=== PATIENT | female | born 1945 | race Caucasian/White ===

== ENCOUNTER 2018-11-11 13:09 | Observation (INO) | payer MEDICARE, OTHER | END 2018-11-12 10:30 | disposition home or self-care (01) | LOC: ER 13:09 → 4TH 17:40 ==

== ENCOUNTER 2022-11-30 12:03 | Emergency (ER) | payer MEDICARE, OTHER ==
[~2022-11-30] VITALS: Ht 170 cm; Wt 63.0 kg
[~2022-11-30 12:03] MED LIST: ATORVASTATIN 20 MG; FLUTICASONE 50 MCG; LINA290C PO; METFORMIN 500 MG; METRONIDAZOLE 500 MG; PANTOPRAZOLE 20 MG
[2022-11-30] MEDS ORDERED: METOCLOPRAMIDE INJ 10 MG/2 ML (REGLAN) IVP ONE (12:30)
[2022-11-30] MEDS ORDERED: HOLD METFORMIN - RECEIVED CONTRAST 20 ML VIAL IV SCH (12:30)
[2022-11-30] MEDS ORDERED: IOHEXOL 350 MG/ML 100 ML (OMNIPAQUE 350) VIAL IV ONE (12:30)
[2022-11-30] MEDS ORDERED: NS 100 ML (IVPB) BAG IV ONE (12:30)
[2022-11-30 12:32] LABS: BASOPHILS % (AUTO) 1 % (0-10); EOSINOPHILS # (AUTO) 0.1 10^3/uL (0.0-0.3); EOSINOPHILS % (AUTO) 2 % (0-10); HEMATOCRIT 41 % (35-52); HEMOGLOBIN 14.1 g/dL (11.5-16.0); LYMPHOCYTES # (AUTO) 1.5 10^3/uL (1.0-4.0); LYMPHOCYTES % (AUTO) 24 % (12-44); MEAN CORPUSCULAR HEMOGLOBIN 31 pg (25-34); MEAN CORPUSCULAR HGB CONC 34 g/dL (32-36); MEAN CORPUSCULAR VOLUME 92 fL (80-99); MEAN PLATELET VOLUME 9.8 fL (9.0-12.2); MONOCYTES # (AUTO) 0.6 10^3/uL (0.0-1.0); MONOCYTES % (AUTO) 10 % (0-12); NEUTROPHILS # (AUTO) 3.9 10^3/uL (1.8-7.8); NEUTROPHILS % (AUTO) 63 % (42-75); PLATELET COUNT 205 10^3/uL (130-400); WHITE BLOOD COUNT 6.1 10^3/uL (4.3-11.0)
--- NOTE | 2022-11-30 12:32 | ED Abdominal Pain ---
General Chief Complaint: Abdominal/GI Problems Stated Complaint: ABD PAIN | WEAKNESS Nursing Triage Note: Pt here with upper abdominal pain x wks; reports the incidence are intermittent with sudden burning sensation from her shoulders down. Source of Information: Patient Exam Limitations: No Limitations History of Present Illness Date Seen by Provider: Nov 30, 2022 Time Seen by Provider: 12:28 Initial Comments Patient is a 77-year-old female who is type II diabetic who presents to ED with mid upper abdominal pain. Pain started 2 to 3 weeks ago. Pain at this is described as more "discomfort". Pain is intermittent. Patient states that she becomes nauseous with this discomfort. Similar type pain in the past. She also reports episodes of burning sensation throughout her abdomen, chest, upper and lower extremities. This lasts for a few seconds. She had episode yesterday and today. She does have some pain with eating. Decreased appetite. Patient states she does not follow a GI specialist Dr. Sellers in [place]. She was seen Sunday for this pain and had no procedure performed or unclear etiology of her pain. She does have a history of gastroparesis and has been on Reglan in the past. Not currently on medication. She has been taken Zofran for the nausea. History of cholecystectomy and appendectomy. Normal urinalysis. No specific chest pain, cough or shortness of breath. No known cardiac history history of stroke. She does have some discomfort and fuzzy sensation to the back part of her head over the past 2 to 3 weeks. Denies of any unilateral muscle weakness, sensory changes, visual changes, facial droop. No history of stroke or coronary artery disease. Denies fever, chills, cough, dysuria, frequent urination, vomiting, diarrhea, dark tarry stools. History of esophageal procedure 2 years ago with removal of a diverticulum Allergies and Home Medications Allergies Coded Allergies: Quinolones (Verified Allergy, Unknown, 11/11/18) Sulfa (Sulfonamide Antibiotics) (Verified Allergy, Unknown, 11/11/18) ciprofloxacin (Verified Allergy, Unknown, 11/11/18) fentanyl (Verified Allergy, Unknown, 11/11/18) levofloxacin (Verified Allergy, Unknown, 11/11/18) meloxicam (Verified Allergy, Unknown, 11/11/18) niacin (Verified Allergy, Unknown, 11/11/18) Patient Home Medication List Home Medication List Reviewed: Yes Linaclotide (Linzess) 290 Mcg Capsule, 290 MCG PO DAILY Prescribed by: MARA KEY on 11/12/18 0914 Metoclopramide HCl (Reglan) 5 Mg Tablet, 5 MG PO TID Prescribed by: ARMANDO BURCH on 11/30/22 1432 Ondansetron (Ondansetron Odt) 4 Mg Tab.rapdis, 4 MG SL Q4H PRN for NAUSEA/VOMITING Prescribed by: ARMANDO BURCH on 11/30/22 1432 [Atorvastatin Tab 20mg] , (Reported) Entered as Reported by: ASHLEY CABRAL on 11/11/18 1340 [Fluticasone Spr 50mcg] , (Reported) Entered as Reported by: ASHLEY CABRAL on 11/11/18 1340 [Metformin Tab 500MG Er] , (Reported) Entered as Reported by: ASHLEY CABRAL on 11/11/18 1340 [Pantoprazole Tab 20mg] , (Reported) Entered as Reported by: ASHLEY CABRAL on 11/11/18 1340 Discontinued Medications Metoclopramide HCl (Reglan) 5 Mg Tablet, 5 MG PO TID Prescribed by: ARMANDO BURCH on 11/30/22 1414 Ondansetron (Ondansetron Odt) 4 Mg Tab.rapdis, 4 MG SL Q4H PRN for NAUSEA/VOMITING Prescribed by: ARMANDO BURCH on 11/30/22 1414 Review of Systems Review of Systems Constitutional: No chills, No diaphoresis, No fever, No malaise, No weakness EENTM: No Blurred Vision, No Double Vision Respiratory: Denies Cough, Denies Orthopnea Cardiovascular: Denies Chest Pain, Denies Edema, Denies Irregular Heart Rate Gastrointestinal: Abdominal Pain; Denies Diarrhea; Nausea; Denies Vomiting Genitourinary: Denies Burning, Denies Discharge, Denies Drainage, Denies Frequency, Denies Flank Pain Musculoskeletal: No back pain Skin: No change in color, No change in hair/nails Psychiatric/Neurological: Headache Endocrine: Denies Excessive Sweating All Other Systems Reviewed Negative Unless Noted: Yes Past Lxuhtgp-Sfilzk-Ghrzke Hx Immunizations Up To Date Tetanus Booster (TDap): Unknown PED Vaccines UTD: Yes Seasonal Allergies Seasonal Allergies: Yes Past Medical History Surgeries: Yes (lumbar fusion spinal cord stimulator) Appendectomy, Gallbladder Respiratory: No Cardiac: No High Cholesterol Neurological: No Genitourinary: Yes Kidney Stones Gastrointestinal: Yes Chronic Constipation, Irritable Bowel Musculoskeletal: Yes Chronic Back Pain Endocrine: Yes (THYROID NODULES) Diabetes, Non-Insulin dep HEENT: No Cancer: No Psychosocial: No Integumentary: No Blood Disorders: No Family Medical History No Pertinent Family Hx Physical Exam Vital Signs Vital Signs - First Documented 11/30/22 12:19 Temp 36.2 Pulse 72 Resp 18 B/P (MAP) 139/80 (99) Pulse Ox 97 O2 Delivery Room Air Capillary Refill : Less Than 3 Seconds Height/Weight/BMI Height: 5'7.00" Weight: 145lbs. 6.7oz. 65.125275uv; 21.00 BMI Method:Stated General Appearance: WD/WN, no apparent distress HEENT: PERRL/EOMI, normal ENT inspection, TMs normal, pharynx normal Neck: non-tender, full range of motion, supple, normal inspection Respiratory: chest non-tender, lungs clear, normal breath sounds, no respiratory distress, no accessory muscle use Cardiovascular: regular rate, rhythm, no edema, no gallop, no JVD Gastrointestinal: normal bowel sounds, soft, no organomegaly, no pulsatile mass, tenderness (Lower quadrant tenderness, epigastric tender) Extremities: normal range of motion, non-tender, normal inspection, no pedal edema, no calf tenderness Back: normal inspection, no CVA tenderness 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, no motor/sensory deficits, alert, normal mood/affect, oriented x 3 Skin: normal color, warm/dry Progress/Results/Core Measures Results/Orders Lab Results Laboratory Tests Test 11/30/22 12:22 11/30/22 12:51 Range/Units White Blood Count 6.1 4.3-11.0 10^3/uL Red Blood Count 4.50 3.80-5.11 10^6/uL Hemoglobin 14.1 11.5-16.0 g/dL Hematocrit 41 35-52 % Mean Corpuscular Volume 92 80-99 fL Mean Corpuscular Hemoglobin 31 25-34 pg Mean Corpuscular Hemoglobin Concent 34 32-36 g/dL Red Cell Distribution Width 12.9 10.0-14.5 % Platelet Count 205 130-400 10^3/uL Mean Platelet Volume 9.8 9.0-12.2 fL Immature Granulocyte % (Auto) 0 % Neutrophils (%) (Auto) 63 42-75 % Lymphocytes (%) (Auto) 24 12-44 % Monocytes (%) (Auto) 10 0-12 % Eosinophils (%) (Auto) 2 0-10 % Basophils (%) (Auto) 1 0-10 % Neutrophils # (Auto) 3.9 1.8-7.8 10^3/uL Lymphocytes # (Auto) 1.5 1.0-4.0 10^3/uL Monocytes # (Auto) 0.6 0.0-1.0 10^3/uL Eosinophils # (Auto) 0.1 0.0-0.3 10^3/uL Basophils # (Auto) 0.0 0.0-0.1 10^3/uL Immature Granulocyte # (Auto) 0.0 0.0-0.1 10^3/uL Sodium Level 129 L 135-145 MMOL/L Potassium Level 4.2 3.6-5.0 MMOL/L Chloride Level 97 L 98-107 MMOL/L Carbon Dioxide Level 23 21-32 MMOL/L Anion Gap 9 5-14 MMOL/L Blood Urea Nitrogen 14 7-18 MG/DL Creatinine 1.04 0.60-1.30 MG/DL Estimat Glomerular Filtration Rate 55 BUN/Creatinine Ratio 13 Glucose Level 136 H 70-105 MG/DL Calcium Level 9.9 8.5-10.1 MG/DL Corrected Calcium 9.5 8.5-10.1 MG/DL Magnesium Level 2.0 1.6-2.4 MG/DL Total Bilirubin 0.6 0.1-1.0 MG/DL Aspartate Amino Transf (AST/SGOT) 26 5-34 U/L Alanine Aminotransferase (ALT/SGPT) 23 0-55 U/L Alkaline Phosphatase 64 40-136 U/L Troponin I < 0.028 <0.028 NG/ML Total Protein 6.7 6.4-8.2 GM/DL Albumin 4.5 3.2-4.5 GM/DL Lipase 40 8-78 U/L Urine Color YELLOW Urine Clarity CLEAR Urine pH 7.0 5-9 Urine Specific [place] 1.010 L 1.016-1.022 Urine Protein NEGATIVE NEGATIVE Urine Glucose (UA) NEGATIVE NEGATIVE Urine Ketones 1+ H NEGATIVE Urine Nitrite NEGATIVE NEGATIVE Urine Bilirubin NEGATIVE NEGATIVE Urine Urobilinogen 0.2 < = 1.0 MG/DL Urine Leukocyte Esterase NEGATIVE NEGATIVE Urine RBC (Auto) NEGATIVE NEGATIVE Urine RBC RARE /HPF Urine WBC RARE /HPF Urine Squamous Epithelial Cells 2-5 /HPF Urine Crystals NONE /LPF Urine Bacteria TRACE /HPF Urine Casts NONE /LPF Urine Mucus NEGATIVE /LPF Urine Culture Indicated NO My Orders Orders - PERRY KIRK PA Cbc With Automated Diff (11/30/22 12:26) Comprehensive Metabolic Panel (11/30/22 12:26) Troponin I Buster (11/30/22 12:26) Ekg Tracing (11/30/22 12:) Ua Culture If Indicated (11/30/22 12:) Chest 1 View, Ap/Pa Only (11/30/22 12:26) Ct Abdomen/Pelvis W (11/30/22 12:26) Magnesium (11/30/22 12:) Lipase (11/30/22 12:) Metoclopramide Injection (Reglan Injecti (11/30/22 12:30) Iohexol Injection (Omnipaque 350 Mg/Ml 1 (11/30/22 12:30) Received Contrast (Hold Metformin- Contr (11/30/22 12:30) Ns (Ivpb) (Sodium Chloride 0.9% Ivpb Bag (11/30/22 12:30) Ns Iv 1000 Ml (Sodium Chloride 0.9%) (11/30/22 13:00) Ns Iv 500 Ml (Sodium Chloride 0.9%) (11/30/22 13:52) Medications Given in ED Current Medications Medications Dose Ordered Sig/Cy Route Start Time Stop Time Status Last Admin Dose Admin Iohexol 100 ml ONCE ONCE IV 11/30/22 12:30 11/30/22 12:31 DC 11/30/22 13:11 75 ML Metoclopramide HCl 5 mg ONCE ONCE IVP 11/30/22 12:30 11/30/22 12:31 DC 11/30/22 12:48 5 MG Sodium Chloride 100 ml ONCE ONCE IV 11/30/22 12:30 11/30/22 12:31 DC 11/30/22 13:11 80 ML Vital Signs/I&O 11/30/22 11/30/22 12:19 14:48 Temp 36.2 Pulse 72 56 Resp 18 B/P (MAP) 139/80 (99) 138/68 Pulse Ox 97 99 O2 Delivery Room Air Blood Pressure Mean: 99 Comment Sinus rhythm with first-degree AV block, left axis deviation, possible right ventricular conduction delay, 60 bpm, QRS duration 87 MS, QTc 412 MS. Departure Communication (PCP) Patient is a 77-year-old female with a history of gastroparesis esophageal d iverticulum, gastritis, history of cholecystectomy and appendectomy presents to ED with abdominal pain. Abdominal pain over the past 2 to 3 weeks. Pain is intermittent described as more "discomfort" with nausea. No vomiting or diarrhea. Differential diagnosis of gastritis, peptic ulcer, gastroparesis, diverticulitis, ACS. No known history of coronary artery disease. Due to lo cation of pain upper abdomen: cardiac work-up with CBC, CMP, magnesium, lipase, urinalysis. She does take omeprazole daily. Patient has been on Reglan in the past for her gastroparesis. She is type II diabetic currently on insulin. CBC grossly unremarkable. Chemistry showed a sodium 129, chloride of 97, blood sugar of 139. Normal troponin. EKG normal sinus rhythm without evidence of ST elevation or depression. Chest x-ray was unremarkable. Due to the abdominal pain and discomfort for the past [address] scan of the abdomen and pelvis was ordered. CT scan of the abdomen pelvis was negative for acute abnormality. She did receive 5 mg of Reglan with improvement of her pain. She was tolerating p.o. fluids. She received 1500 ml of IV saline. Urinalysis negative for infection. Normal kidney function. dehydration likely secondary to decreased appetite and not eating or drinking. She does eat Ensure. She has been drinking nonsugar Gatorade. She does have some Zofran at home she took for to help with her nausea. She denies of any bloody or dark tarry stool. Normal hemoglobin. She did have a bowel movement today. She does not appear constipated. Concern for gastroparesis versus gastritis. She does have some burning sensation in her upper abdomen and chest but she states the burning sensation is diffuse as well. No current headache at this time. No neurological red flag findings. Discussed continue with omeprazole. We will trial low-dose Reglan as she states she has been on 5 mg in the past with help with similar symptoms. She did follow-up with Dr. Kan cargo inspector at [place] this past Sunday and states she was unsure of what was causing her pain. She was not provided follow up. She states she did have a upper EGD performed 1 to 2 years ago which was unremarkable. She is looking for a local GI/general surgeon. Provided a follow-up with discharge. Discussed clear liquid diet for the next few days and then work into more of a bland diet. Recommend hydration with Pedialyte. Follow-up your PCP in 1 to 2 days for recheck of your lab work and follow-up of today's visit. Patient symptoms appear to be improving. Avoid eating late at night, fatty foods, spicy food. May consider switching omeprazole to Protonix if no improvement. If any worsening symptoms or pain to return back to ED. Does not appear to be cardiac in nature. Impression Primary Impression: Abdominal pain Additional Impression: Dehydration Disposition: 01 HOME, SELF-CARE Condition: Stable Departure-Patient Inst. Decision time for Depature: 13:53 Referrals: MORE AYALA APRN (PCP) Primary Care Physician VIVI PACHECO DO Patient Instructions: Gastroparesis (Delayed Gastric Emptying) (DC) Scripts Ondansetron (Ondansetron Odt) 4 Mg Tab.rapdis 4 MG SL Q4H PRN for NAUSEA/VOMITING, #8 TAB Prov: PERRY KIRK 11/30/22 Metoclopramide HCl (Reglan) 5 Mg Tablet 5 MG PO TID for Abdominal Pain, #12 TAB Prov: PERRY KIRK 11/30/22 PERRY KIRK Nov 30, 2022 12:32
[2022-11-30 12:58] LABS: ALBUMIN 4.5 GM/DL (3.2-4.5); CHLORIDE 97 MMOL/L (98-107); POTASSIUM 4.2 MMOL/L (3.6-5.0); SODIUM 129 MMOL/L (135-145)
[2022-11-30 12:59] LABS: CALCIUM 9.9 MG/DL (8.5-10.1)
[2022-11-30 13:00] LABS: GLUCOSE 136 MG/DL (70-105); TOTAL PROTEIN 6.7 GM/DL (6.4-8.2)
[2022-11-30] MEDS ORDERED: NS IV 1000 ML 1,000 ML IV STA (13:00)
[2022-11-30 13:01] LABS: CARBON DIOXIDE 23 MMOL/L (21-32)
[2022-11-30 13:02] LABS: BILIRUBIN,TOTAL 0.6 MG/DL (0.1-1.0)
[2022-11-30 13:03] LABS: ALKALINE PHOSPHATASE 64 U/L (40-136)
[2022-11-30 13:04] LABS: CREATININE SERUM 1.04 MG/DL (0.60-1.30); GFR ESTIMATED 55
[2022-11-30 13:05] LABS: BUN/CREATININE RATIO 13
[2022-11-30 13:07] LABS: ALANINE AMINOTRANSFERASE 23 U/L (0-55); LIPASE 40 U/L (8-78)
[2022-11-30 13:09] LABS: BILIRUBIN,URINE NEGATIVE (NEGATIVE); CLARITY,URINE CLEAR; COLOR,URINE YELLOW; GLUCOSE, URINE (UA) NEGATIVE (NEGATIVE); KETONES,URINE 1+ (NEGATIVE); LEUKOCYTE ESTERASE ,URINE NEGATIVE (NEGATIVE); NITRITE,URINE NEGATIVE (NEGATIVE); PROTEIN,URINE NEGATIVE (NEGATIVE)
--- NOTE | 2022-11-30 13:19 | Diagnostic Imaging Report ---
EXAMINATION: Chest 1 view HISTORY: chest pain COMPARISON: None available. FINDINGS: Heart size and pulmonary vasculature are normal. The lungs are clear without consolidation, pleural effusion, or pneumothorax. The osseous structures are intact. IMPRESSION: 1. No acute radiographic abnormality in the chest. Dictated by: Dictated on workstation # [id number]
[2022-11-30 13:24] LABS: BACTERIA,URINE TRACE /HPF; RBC,URINE RARE /HPF; WBC,URINE RARE /HPF
--- NOTE | 2022-11-30 13:32 | Diagnostic Imaging Report ---
EXAMINATION: CT abdomen and pelvis with intravenous contrast. TECHNIQUE: Multiple contiguous axial images were obtained through the abdomen and pelvis after the uneventful administration of intravenous contrast. All CT scans use one or more of the following dose optimizing techniques: automated exposure control, MA and/or KvP adjustment based on patient size and exam type or iterative reconstruction. HISTORY: llq, mid to upper abd pain COMPARISON: 11/11/2018 FINDINGS: Lung bases: Bibasilar dependent atelectasis. Solid organs: The liver is normal without focal lesion. The gallbladder is surgically absent. There is no biliary ductal dilation. Pancreas is normal. Spleen is normal. Adrenal glands are normal. Stable areas of renal cortical scarring bilaterally. No hydronephrosis. Bowel: The stomach and small bowel are normal without obstruction. A moderate amount of stool seen throughout the colon. There are no secondary signs of acute appendicitis. Peritoneum: There is no intraperitoneal free fluid or free air. No suspicious lymphadenopathy. Vasculature: Calcification of the aorta without aneurysm. Musculoskeletal: Multilevel surgical and degenerative changes of the spine without suspicious osseous lesion or acute compression fracture. A right-sided spinal stimulator device is present. Pelvis: The uterus and adnexa are normal. The urinary bladder is normal. IMPRESSION: 1. No acute abnormality in the abdomen or pelvis. Dictated by: Dictated on workstation # [id number]
[2022-11-30] MEDS ORDERED: NS IV 500 ML 500 ML IV STA (13:52)
[2022-11-30] MEDS ORDERED: ONDA4TAB11 SL ×2 (14:14→14:32)
[2022-11-30] MEDS ORDERED: METO5TAB75 PO ×2 (14:14→14:32)
[2022-11-30 14:48] VITALS: BP 138/68
== END 2022-11-30 14:49 | disposition home or self-care (01) ==
LOC: EDUNIT# 12:03 → ER 12:06
DX: R10.13 Epigastric pain (principal); E86.0 Dehydration; E11.43 Type 2 diabetes mellitus with diabetic autonomic (poly)neuropathy; K31.84 Gastroparesis; Z90.49 Acquired absence of other specified parts of digestive tract; Z79.899 Other long term (current) drug therapy; Z79.4 Long term (current) use of insulin
CPT/HCPCS: 36415; 71045; 74177; 80053; 81000; 83690; 83735; 84484; 85025; 93005